=== PATIENT | male | born 1935 | race Caucasian/White ===

== ENCOUNTER 2016-11-10 01:16 | Emergency (ER) | payer SELFPAY ==
[~2016-11-10] VITALS: Ht 172.7 cm; Wt 62.0 kg
[~2016-11-10 01:16] MED LIST: ATOR20TA42 PO; CLOP75 PO; GLUCTAB PO; IMDU30TA PO; LANO0.2510 PO; LOPR50TA12 PO; NITR.4T TD; NITR0.1D TD; OMEP20TA39 PO; VENTAER INH
[2016-11-10 01:21] VITALS: BP 108/58; PULSE 60; RESP 15; TEMP 98; O2SAT 97
[2016-11-10 02:06] VITALS: BP 106/55; PULSE 58; RESP 14; O2SAT 94
[2016-11-10 02:30] VITALS: RESP 16; O2SAT 99
[2016-11-10] MEDS ORDERED: CLOP75TA PO (02:37)
[2016-11-10] MEDS ORDERED: NITR1SUB3 SL (02:37)
[2016-11-10] MEDS ORDERED: ATOR20TA15 PO (02:37)
[2016-11-10] MEDS ORDERED: METF500T PO (02:37)
[2016-11-10] MEDS ORDERED: METO50TA11 PO (02:37)
[2016-11-10] MEDS ORDERED: PLAV75TA29 PO (02:37)
[2016-11-10 02:48] LABS: AUTOMATED NEUTROPHIL # 4.3 TH/MM3 (1.8-7.7); BASOPHIL # 0.1 TH/MM3 (0-0.2); BASOPHIL % 0.8 % (0.0-2.0); EOSINOPHIL # 0.5 TH/MM3 (0-0.4); EOSINOPHIL % 6.2 % (0.0-4.0); HEMATOCRIT 36.6 % (39.0-51.0); HEMO FLAGS DIFF FINAL; LYMPH % 29.3 % (9.0-44.0); LYMPHOCYTE # 2.4 TH/MM3 (1.0-4.8); MEAN CELL VOLUME 92.5 FL (80.0-100.0); MEAN CORPUSCULAR HEMOGLOBIN 32.4 PG (27.0-34.0); MONO % 10.4 % (0.0-8.0); NEUT % 53.3 % (16.0-70.0); PLATELET COUNT 111 TH/MM3 (150-450); RED BLOOD COUNT 3.96 MIL/MM3 (4.50-5.90); RED CELL DISTRIBUTION WIDTH 13.3 % (11.6-17.2)
[2016-11-10 02:53] LABS: APTT (PATIENT) 21.4 SEC (24.3-30.1); INTERNATIONAL NORMALIZED RATIO 0.9 RATIO; PROTHROMBIN TIME - PATIENT 10.4 SEC (9.8-11.6)
[2016-11-10 02:54] LABS: ANION GAP 8 MEQ/L (5-15); BICARBONATE 29.6 MEQ/L (21.0-32.0); BLOOD UREA NITROGEN 18 MG/DL (7-18); CHLORIDE 102 MEQ/L (98-107); GLOMERULAR FILTRATION RATE 67 ML/MIN (>89); MAGNESIUM 2.2 MG/DL (1.5-2.5); SODIUM (NA) 140 MEQ/L (136-145)
--- NOTE | 2016-11-10 02:54 | PD ---
HPI Chief Complaint: Chest Pain Time Seen by Provider: 02:39 Travel History International Travel<30 days: No Contact w/Intl Traveler<30days: No Traveled to known affect area: No History of Present Illness HPI 81-year-old male complains of chest pain. Patient states that he has intermittent chest pain this evening. Patient's states that the pain is aching pain localized to left chest. Patient denies any pain radiation. Patient denies palpitation nausea vomiting diaphoresis. Patient denies any fever chills coughing congestion. Patient denies any history of CAD. Patient has history hypertension, diabetes, hyperlipidemia. Patient is a nonsmoker. Patient is on Plavix however unable to tell me why he is on Plavix. PFSH Past Medical History Hx Anticoagulant Therapy: Yes Atrial Fibrillation: Yes Blood Disorders: No Heart Rhythm Problems: Yes Cancer: No Cardiac Catheterization: Yes (x3 June 2007 ) Cardiovascular Problems: Yes High Cholesterol: Yes Chemotherapy: No Chest Pain: Yes Congestive Heart Failure: No Diabetes: Yes Patient Takes Glucophage: Yes Diminished Hearing: No Endocrine: Yes Gastrointestinal Disorders: No Genitourinary: No Hypertension: Yes Immune Disorder: No Implanted Vascular Access Dvce: No Kidney Stones: Yes Musculoskeletal: No Neurologic: No Psychiatric: No Reproductive: No Respiratory: No Immunizations Current: Yes Myocardial Infarction: No Radiation Therapy: No Thyroid Disease: No Past Surgical History AICD: No Appendectomy: Yes Body Medical Devices: ? CARDIAC STENT Coronary Stent: Yes (June 2007) Genitourinary Surgery: Yes (KIDNEY STONE) Joint Replacement: No Pacemaker: No Tonsillectomy: Yes Other Surgery: Yes (TONSILLECTOMY) Social History Alcohol Use: No Tobacco Use: No Substance Use: No Allergies-Medications (Allergen,Severity, Reaction): Coded Allergies: aspirin (Unverified Allergy, Severe, "DIZZINESS", 11/10/16) penicillin G (Unverified Allergy, Severe, Rash, 11/10/16) REDNESS ALL OVER tomato (Unverified Allergy, Severe, Rash, 11/10/16) watermelon (Unverified Allergy, Severe, Anaphylaxis, 11/10/16) Reported Meds & Prescriptions Reported Meds & Active Scripts Active Reported Nitroglycerin SL (Nitroglycerin) 0.4 Mg Subl 0.4 Mg SL DIRECTED PRN ONE TABLET UNDER THE TONGUE NEEDED FOR CHEST PAIN, MAY REPEAT EVERY FIVE MINUTES FOR A TOTAL OF 3 DOSES OR CALL 911 IF NO RELIEF Clopidogrel (Clopidogrel Bisulfate) 75 Mg Tab 75 Mg PO DAILY Metoprolol Succinate ER 24 HR (Metoprolol Succinate) 50 Mg Tab 50 Mg PO DAILY Atorvastatin (Atorvastatin Calcium) 20 Mg Tab 20 Mg PO HS Plavix (Clopidogrel Bisulfate) 75 Mg Tab 75 Mg PO DAILY Metformin (Metformin HCl) 500 Mg Tab 500 Mg PO BIDPC With meals Review of Systems General / Constitutional: No: Fever Eyes: No: Visual changes HENT: No: Headaches Cardiovascular: Positive: Chest Pain or Discomfort Respiratory: No: Shortness of Breath Gastrointestinal: No: Abdominal Pain Genitourinary: No: Dysuria Musculoskeletal: No: Pain Skin: No Rash Neurologic: No: Weakness Psychiatric: No: Depression Endocrine: No: Polydipsia Hematologic/Lymphatic: No: Easy Bruising Physical Exam Narrative GENERAL: Well-nourished, well-developed patient. SKIN: Focused skin assessment warm/dry. HEAD: Normocephalic. EYES: No scleral icterus. No injection or drainage. NECK: Supple, trachea midline. No JVD or lymphadenopathy. CARDIOVASCULAR: Regular rate and rhythm without murmurs, gallops, or rubs. RESPIRATORY: Breath sounds equal bilaterally. No accessory muscle use. GASTROINTESTINAL: Abdomen soft, non-tender, nondistended. MUSCULOSKELETAL: No cyanosis, or edema. BACK: Nontender without obvious deformity. No CVA tenderness. Neurologic exam normal. Data Data Last Documented VS Vital Signs Date Time Temp Pulse Resp B/P (MAP) Pulse Ox O2 Delivery O2 Flow Rate FiO2 11/10/16 02:30 16 99 Nasal Cannula 2.00 11/10/16 02:06 58 11/10/16 01:21 98.0 Orders Orders Electrocardiogram (11/10/16 02:10) Basic Metabolic Panel (Bmp) (11/10/16 02:10) Ckmb (Isoenzyme) Profile (11/10/16 02:10) Complete Blood Count With Diff (11/10/16 02:10) Magnesium (Mg) (11/10/16 02:10) Prothrombin Time / Inr (Pt) (11/10/16 02:10) Act Partial Throm Time (Ptt) (11/10/16 02:10) Troponin I (11/10/16 02:10) Chest, Single Ap (11/10/16 02:10) Ecg Monitoring (11/10/16 02:10) Bilateral Bp Monitoring (11/10/16 02:10) Iv Access Insert/Monitor (11/10/16 02:10) Oximetry (11/10/16 02:10) Oxygen Administration (11/10/16 02:10) Labs Laboratory Tests Test 11/10/16 02:15 White Blood Count 8.0 TH/MM3 Red Blood Count 3.96 MIL/MM3 Hemoglobin 12.8 GM/DL Hematocrit 36.6 % Mean Corpuscular Volume 92.5 FL Mean Corpuscular Hemoglobin 32.4 PG Mean Corpuscular Hemoglobin Concent 35.0 % Red Cell Distribution Width 13.3 % Platelet Count 111 TH/MM3 Mean Platelet Volume 9.7 FL Neutrophils (%) (Auto) 53.3 % Lymphocytes (%) (Auto) 29.3 % Monocytes (%) (Auto) 10.4 % Eosinophils (%) (Auto) 6.2 % Basophils (%) (Auto) 0.8 % Neutrophils # (Auto) 4.3 TH/MM3 Lymphocytes # (Auto) 2.4 TH/MM3 Monocytes # (Auto) 0.8 TH/MM3 Eosinophils # (Auto) 0.5 TH/MM3 Basophils # (Auto) 0.1 TH/MM3 CBC Comment DIFF FINAL Differential Comment Prothrombin Time 10.4 SEC Prothromb Time International Ratio 0.9 RATIO Activated Partial Thromboplast Time 21.4 SEC Blood Urea Nitrogen 18 MG/DL Creatinine 1.06 MG/DL Random Glucose 207 MG/DL Calcium Level 9.0 MG/DL Magnesium Level 2.2 MG/DL Sodium Level 140 MEQ/L Potassium Level 4.2 MEQ/L Chloride Level 102 MEQ/L Carbon Dioxide Level 29.6 MEQ/L Anion Gap 8 MEQ/L Estimat Glomerular Filtration Rate 67 ML/MIN Total Creatine Kinase 84 U/L Troponin I LESS THAN 0.02 NG/ML MDM Medical Decision Making Medical Screen Exam Complete: Yes Emergency Medical Condition: Yes Interpretation(s) 4:59 AM. EKG shows sinus bradycardia nonspecific ST-T wave change. Last Impressions Chest X-Ray 11/10/16209 Signed Impressions: Service Date/Time: Thursday, November 10, 2016 02:44 - CONCLUSION: Normal examination. Shane Franklin MD CBC within normal limit. Platelet count 111. BMP within normal limit. Cardiac enzymes are normal. Differential Diagnosis Differential diagnosis including musculoskeletal, angina, [place], PE, pneumothorax. Narrative Course 81-year-old male with chest pain. Patient was advised to be admitted to the chest pain center fall workup. Patient refuses admission. Patient wants to go home and follow-up with his physician. Diagnosis Primary Impression: Chest pain Qualified Codes: R07.9 - Chest pain, unspecified Patient Instructions: General Instructions Additional Instructions: Follow-up with personal physician. Return immediately if chest pain or shortness of breath. Med/Other Pt SpecificInfo: No Change to Meds Disposition: 01 DISCHARGE HOME Condition: Stable Tomi Rubio MD Nov 10, 2016 02:54
[2016-11-10 02:55] LABS: POTASSIUM 4.2 MEQ/L (3.5-5.1)
[2016-11-10 02:56] LABS: CREATINE KINASE 84 U/L (39-308)
--- NOTE | 2016-11-10 03:01 | RADRPT ---
EXAM DATE/TIME: 11/10/2016 02:44 [facility] COMPARISON: CHEST SINGLE AP, September 13, 2015, 23:06. INDICATIONS : Chest pain. MEDICAL HISTORY : Hypertension. Diabetes mellitus type II. SURGICAL HISTORY : None. ENCOUNTER: Initial ACUITY: 1 day PAIN SCORE: 6/10 LOCATION: Bilateral chest FINDINGS: A single view of the chest demonstrates the lungs to be symmetrically aerated without evidence of mas s, infiltrate or effusion. The cardiomediastinal contours are unremarkable. Osseous structures are intact. CONCLUSION: Normal examination. Shane Franklin MD on November 10, 2016 at 2:59 Board Certified Radiologist. This report was verified electronically.
--- NOTE | 2016-11-10 15:55 | EKG ---
Date Performed: 11/10/2016 Time Performed: 01:53:05 PTAGE: 81 years EKG: SINUS BRADYCARDIA NONSPECIFIC ST & T-WAVE ABNORMALITY ABNORMAL ECG PREVIOUS TRACING : 09/13/2015 22.54 Compared to prior tracing no significant change DOCTOR: Alex Jameson Interpretating Date/Time 11/10/2016 15:54:25
== END 2016-11-10 05:20 | disposition home or self-care (01) ==
LOC: NEPC 01:16
DX: R07.9 Chest pain, unspecified (principal); R00.1 Bradycardia, unspecified; R94.31 Abnormal electrocardiogram [ECG] [EKG]; I10 Essential (primary) hypertension; E11.9 Type 2 diabetes mellitus without complications; E78.5 Hyperlipidemia, unspecified; Z79.01 Long term (current) use of anticoagulants; Z79.84 Long term (current) use of oral hypoglycemic drugs; Z86.79 Personal history of other diseases of the circulatory system; Z87.442 Personal history of urinary calculi
CPT/HCPCS: 71010; 80048; 82550; 83735; 84484; 85025; 85610; 85730; 93005; 99285